=== PATIENT | female | born 1955 | race African-American/Black ===

== ENCOUNTER 2020-08-08 09:38 | Outpatient (CLI) | payer MEDICARE, MEDICAID | END 2020-08-08 09:39 | disposition home or self-care (01) | LOC: CSHMAMMO 09:38 | PROVIDERS: ATTEND Internal Medicine | DX: Z12.31 Encounter for screening mammogram for malignant neoplasm of breast (principal) | CPT/HCPCS: 77063; 77067 ==

== ENCOUNTER 2022-07-01 09:26 | Outpatient (CLI) | payer OTHER, MEDICAID | END 2022-07-01 09:27 | disposition home or self-care (01) | LOC: CSHMAMMO 09:26 | PROVIDERS: ATTEND Internal Medicine | DX: Z12.31 Encounter for screening mammogram for malignant neoplasm of breast (principal) | CPT/HCPCS: 77063; 77067 ==